=== PATIENT | female | born 1975 ===

== ENCOUNTER 2018-04-16 09:00 | Emergency (ER) | payer OTHER ==
[2018-04-16 09:12] VITALS: BP 122/80; PULSE 78; RESP 20; TEMP 98; O2SAT 97
--- NOTE | 2018-04-16 09:43 | C.PDOC ---
History Of Present Illness 42 y/o female presents to the ED complaining she noticed a small lesion under her left breast 10 days ago. She notes the area is not painful and has no drainage. Denies any fever or chills. Time Seen by Provider: 04/16/18 09:12 Chief Complaint (Nursing): Breast Problem History Per: Patient History/Exam Limitations: no limitations Onset/Duration Of Symptoms: Days (10) Current Symptoms Are (Timing): Still Present Past Medical History Reviewed: Historical Data, Nursing Documentation, Vital Signs Vital Signs: Last Vital Signs Temp 98 F 04/16/18 09:09 Pulse 78 04/16/18 09:09 Resp 20 04/16/18 09:09 BP 122/80 04/16/18 09:09 Pulse Ox 97 04/16/18 09:09 - Medical History PMH: No Chronic Diseases Surgical History: No Surg Hx Family History: States: No Known Family Hx - Social History Hx Tobacco Use: No Hx Alcohol Use: No Hx Substance Use: No - Immunization History Hx Tetanus Toxoid Vaccination: No Hx Influenza Vaccination: No Hx Pneumococcal Vaccination: No Review Of Systems Except As Marked, All Systems Reviewed And Found Negative. Constitutional: Negative for: Fever, Chills Cardiovascular: Negative for: Chest Pain Respiratory: Negative for: Shortness of Breath Skin: Positive for: Other (small lesion under left breast). Negative for: Rash Neurological: Negative for: Weakness, Numbness Physical Exam - Physical Exam Appears: Well, Non-toxic, No Acute Distress Skin: Warm, Dry, Other (Under left breast there is a small boil which is non- tender, with some hyperpigmentation but no erythema, fluctuance, or induration) Eye(s): bilateral: Normal Inspection Neck: Normal ROM Chest: Symmetrical Respiratory: No Accessory Muscle Use, Other (No respiratory distress) Extremity: Bilateral: Normal ROM (x 4) Neurological/Psych: Oriented x3 ED Course And Treatment O2 Sat by Pulse Oximetry: 97 (RA) Pulse Ox Interpretation: Normal Medical Decision Making Medical Decision Making: Impression: Boil Plan: Patient will be discharged home on Clindamycin. Instructed to follow up with the clinic or return if worse. Disposition Counseled Patient/Family Regarding: Diagnosis, Need For Followup, Rx Given - Disposition Referrals: [facility] [Outside] Disposition: HOME/ ROUTINE Disposition Time: 09:42 Condition: STABLE Prescriptions: Clindamycin [Cleocin] 1 cap PO QID #28 cap Instructions: Boil (DC) Forms: [facility] (Senegalese), Gen Discharge Inst Senegalese - POA Present On Arrival: None - Clinical Impression Clinical Impression: Boil - Scribe Statement The provider has reviewed the documentation as recorded by the Scribe Torie Adams Provider Attestation: All medical record entries made by the Scribe were at my direction and personally dictated by me. I have reviewed the chart and agree that the record accurately reflects my personal performance of the history, physical exam, medical decision making, and the department course for this patient. I have also personally directed, reviewed, and agree with the discharge instructions and disposition.
== END 2018-04-16 09:49 | disposition home or self-care (01) ==
LOC: C.ER 09:00
DX: L02.229 Furuncle of trunk, unspecified (principal)

== ENCOUNTER 2018-04-30 09:13 | Emergency (ER) | payer OTHER, SELFPAY ==
[2018-04-30 09:32] VITALS: RESP 20; O2SAT 99
--- NOTE | 2018-04-30 10:09 | C.PDOC ---
History Of Present Illness GEN RASH, ITCH X 4 DAYS. UNK CAUSE. SP CLINDAMYCIN FOR DENTAL ABSCESS SEV WEEKS AGO BUT NO NEW EXPOSURE. NO SOB, NV, SWELL EXAM GEN HIVES Time Seen by Provider: 04/30/18 10:05 Chief Complaint (Nursing): Allergic Reaction History Per: Patient History/Exam Limitations: no limitations Onset/Duration Of Symptoms: Days Current Symptoms Are (Timing): Still Present Severity: Moderate Past Medical History Reviewed: Historical Data, Nursing Documentation, Vital Signs Vital Signs: Last Vital Signs Temp 98.6 F 04/30/18 09:29 Pulse 75 04/30/18 09:29 Resp 20 04/30/18 09:29 BP 115/76 04/30/18 09:29 Pulse Ox 99 04/30/18 09:29 - Medical History PMH: No Chronic Diseases Surgical History: No Surg Hx Family History: States: No Known Family Hx - Social History Hx Alcohol Use: No Hx Substance Use: No - Immunization History Hx Tetanus Toxoid Vaccination: Yes Hx Influenza Vaccination: Yes Hx Pneumococcal Vaccination: No Review Of Systems Except As Marked, All Systems Reviewed And Found Negative. Constitutional: Negative for: Fever, Chills Respiratory: Negative for: Shortness of Breath Gastrointestinal: Negative for: Nausea, Vomiting Skin: Positive for: Rash Physical Exam - Physical Exam Appears: No Acute Distress Skin: Warm, Dry, Rash (generalized hives) Head: Atraumatic, Normacephalic Eye(s): bilateral: Normal Inspection Cardiovascular: Rhythm Regular Respiratory: Other (NARD) Neurological/Psych: Oriented x3, Normal Speech ED Course And Treatment O2 Sat by Pulse Oximetry: 99 (RA) Pulse Ox Interpretation: Normal Medical Decision Making Medical Decision Making: Plan: --Benadryl PO --Pepcid PO --Prednisone PO Disposition Counseled Patient/Family Regarding: Diagnosis, Need For Followup - Disposition Referrals: [facility] [Outside] [facility] [Outside] Disposition: HOME/ ROUTINE Disposition Time: 10:07 Condition: IMPROVED Prescriptions: DiphenhydrAMINE [Benadryl] 50 mg PO TID PRN #30 cap PRN Reason: Itching / Pruritus Famotidine [Pepcid AC] 10 mg PO DAILY #4 tablet predniSONE [Prednisone] 60 mg PO DAILY #12 tab Instructions: Hives (DC) Forms: [employer] (Nepali), Work Excuse Print Language: PERSIAN - Clinical Impression Clinical Impression: Allergic urticaria - Scribe Statement The provider has reviewed the documentation as recorded by the Carolibe Nelida Sepulveda Provider Attestation: All medical record entries made by the Carolibe were at my direction and personally dictated by me. I have reviewed the chart and agree that the record accurately reflects my personal performance of the history, physical exam, medical decision making, and the department course for this patient. I have also personally directed, reviewed, and agree with the discharge instructions and disposition.
[2018-04-30 11:17] VITALS: BP 134/75; PULSE 78; TEMP 98.2
== END 2018-04-30 10:30 | disposition home or self-care (01) ==
LOC: C.ER 09:13
DX: L50.0 Allergic urticaria (principal)